=== PATIENT | female | born 1990 | race Hispanic/Latino ===

== ENCOUNTER 2020-10-07 12:16 | Observation (INO) | payer MEDICAID, SELFPAY ==
[2020-10-07 12:53] VITALS: BMI 32.8
[2020-10-07] MEDS ORDERED: hydrALAZINE 20 MG/ML VIAL SLOW IVP PRN (13:29)
[2020-10-07 14:10] LABS: #Eosinphils 0.1 10x3/uL (0.0-0.5); #Monocytes 0.7 10x3/uL (0.0-1.1); #Neutrophils 6.8 10x3/uL (1.5-8.4); %Basophils 0.3 % (0.0-2.0); %Eosinophils 0.8 % (0.0-6.0); %Lymphocytes 15.3 % (18.0-47.0); %Monocytes 7.5 % (0.0-10.0); %Neutrophils 75.1 % (40.0-75.0); Hemoglobin 13.5 g/dL (12.0-15.5); Mean Corpuscular HGB CONC 34.7 g/dL (32.0-36.0); Mean Corpuscular Hemoglobin 30.1 pg (27.0-33.0); Mean Corpuscular Volume 86.8 fl (81.6-98.3); Mean Platelet Volume 11.1 fl (7.4-10.4); Platelet Count 203 10x3/uL (150-450); RBC Distribution Width 12.9 % (11.5-14.5); Red Blood Cell (RBC) Count 4.48 10x6/uL (3.90-5.03); White Blood Cell (WBC) Count 9.1 10x3/uL (3.5-10.5)
[2020-10-07 14:22] LABS: ALT (SGPT) 14 U/L (8-55); AST (SGOT) 13 U/L (5-34); Albumin 3.4 g/dL (3.5-5.0); Alkaline Phosphatase 128 U/L (40-110); Anion Gap 14 mmol/L (10-20); BUN (Urea Nitrogen) 8 mg/dL (7.0-18.7); Bilirubin, Total 0.2 mg/dL (0.2-1.2); Calc. Creatinine Clearance 179 mL/min (70-130); Calcium 8.5 mg/dL (7.8-10.44); Carbon Dioxide 20 mmol/L (22-29); Chloride 106 mmol/L (98-107); Globulin 2.8 g/dL (2.4-3.5); Glucose 100 mg/dL (70-105); Potassium 3.5 mmol/L (3.5-5.1); Protein, Total 6.2 g/dL (6.0-8.3); Sodium 136 mmol/L (136-145); Uric Acid 5.3 mg/dL (2.6-6.0)
[2020-10-07 15:25] LABS: Creatinine, Urine 73.8 mg/dL (47-110)
[2020-10-07] MEDS ORDERED: Ondansetron PF 4 MG/2 ML Vial IVP PRN (15:44)
[2020-10-07] MEDS ORDERED: Docusate 100 MG CAP PO PRN (15:44)
[2020-10-07] MEDS ORDERED: Acetaminophen 500 MG TAB PO PRN (15:44)
[2020-10-07] MEDS ORDERED: Promethazine HCl 25 MG/ML VIAL IM PRN (15:44)
[2020-10-07 16:36] LABS: HIV (1/2) Antibody/Antigen Non-Reactive (NonReactive); HIV 1/2 INDEX 0.08 S/CO (<1.00); Syphilis Antibody Nonreactive (Nonreactive); Syphilis Antibody Index 0.04 S/CO (<1.00 Non-Reactive)
[2020-10-07] MEDS ORDERED: Aspirin 81 mg Enteric Coated Tablet PO SCH (16:45)
[2020-10-07] MEDS ORDERED: Labetalol 100 MG TAB PO SCH (23:15)
[2020-10-07 23:40] VITALS: BP 130/72
[2020-10-08 01:29] LABS: SARS-CoV-2 PCR NAA for Saliva Not Detected (NotDetected)
[2020-10-08] MEDS ORDERED: Aspirin 81 mg Enteric Coated Tablet PO SCH (09:00)
[2020-10-08] MEDS ORDERED: Prenatal Vitamin 1 TAB PO SCH (09:00)
[2020-10-08] MEDS ORDERED: Labetalol 100 MG TAB PO SCH ×2 (09:30→21:00)
[2020-10-08 21:21] LABS: Urine Total Volume 2800 mL (600-1600)
[2020-10-08 21:47] LABS: Protein, Urine Less than 10 mg/dL (1-14)
== END 2020-10-08 20:57 | disposition home or self-care (01) ==
LOC: CSHLD/OP 12:16 → CSHLD 19:10
PROVIDERS: ADMIT Family Medicine; ATTEND Family Medicine
DX: O10.913 Unspecified pre-existing hypertension complicating pregnancy, third trimester (principal); Z3A.34 34 weeks gestation of pregnancy; Z79.82 Long term (current) use of aspirin; Z20.822 Contact with and (suspected) exposure to COVID-19
CPT/HCPCS: 36415; 59025; 80053; 82570; 83615; 84156; 84550; 85025; 86780; 86850; 86900; 86901; 87389; 87635; 96374; 99285; G0378; J0360; U0003; U0005

== ENCOUNTER 2020-10-09 19:37 | Day surgery (SDC) | payer MEDICAID, SELFPAY ==
[2020-10-09] MEDS ORDERED: hydrALAZINE 20 MG/ML VIAL SLOW IVP PRN (19:46)
[2020-10-09 20:46] LABS: #Eosinphils 0.1 10x3/uL (0.0-0.5); #Monocytes 0.8 10x3/uL (0.0-1.1); #Neutrophils 5.8 10x3/uL (1.5-8.4); %Basophils 0.3 % (0.0-2.0); %Eosinophils 1.4 % (0.0-6.0); %Lymphocytes 20.7 % (18.0-47.0); %Monocytes 9.4 % (0.0-10.0); %Neutrophils 67.1 % (40.0-75.0); Hemoglobin 12.7 g/dL (12.0-15.5); Mean Corpuscular HGB CONC 34.8 g/dL (32.0-36.0); Mean Corpuscular Hemoglobin 30.6 pg (27.0-33.0); Platelet Count 192 10x3/uL (150-450); RBC Distribution Width 12.8 % (11.5-14.5); Red Blood Cell (RBC) Count 4.15 10x6/uL (3.90-5.03); White Blood Cell (WBC) Count 8.7 10x3/uL (3.5-10.5)
[2020-10-09 21:01] LABS: ALT (SGPT) 26 U/L (8-55); AST (SGOT) 21 U/L (5-34); Albumin 3.2 g/dL (3.5-5.0); Alkaline Phosphatase 125 U/L (40-110); Anion Gap 12 mmol/L (10-20); BUN (Urea Nitrogen) 5 mg/dL (7.0-18.7); Bilirubin, Total 0.2 mg/dL (0.2-1.2); Calc. Creatinine Clearance 0 mL/min (70-130); Carbon Dioxide 21 mmol/L (22-29); Chloride 108 mmol/L (98-107); Globulin 3.2 g/dL (2.4-3.5); Glucose 121 mg/dL (70-105); Potassium 3.7 mmol/L (3.5-5.1); Protein, Total 6.4 g/dL (6.0-8.3); Sodium 137 mmol/L (136-145)
[2020-10-09 21:15] LABS: Creatinine, Urine 38.23 mg/dL (47-110); Protein, Urine Random Quant Less than 10 mg/dL (1-14)
[2020-10-09] MEDS ORDERED: Labetalol 100 MG TAB PO SCH (21:45)
[2020-10-09 21:54] VITALS: BP 149/96
== END 2020-10-09 23:51 | disposition home or self-care (01) ==
LOC: CSHLD/OP 19:37
PROVIDERS: ATTEND Obstetrics & Gynecology
DX: O10.913 Unspecified pre-existing hypertension complicating pregnancy, third trimester (principal); Z3A.34 34 weeks gestation of pregnancy; Z79.82 Long term (current) use of aspirin
CPT/HCPCS: 80053; 82570; 84156; 85025; 99283

== ENCOUNTER 2020-10-21 10:23 | Outpatient (CLI) | payer OTHER ==
[2020-10-21 18:01] LABS: SARS-CoV-2 PCR by NAA Not Detected (NotDetected)
== END 2020-10-21 10:24 | disposition home or self-care (01) ==
LOC: CSHLAB 10:23
PROVIDERS: ATTEND Student in an Organized Health Care Education/Training Program
DX: Z20.822 Contact with and (suspected) exposure to COVID-19 (principal)
CPT/HCPCS: 87635; U0003; U0005

== ENCOUNTER 2020-10-25 18:00 | Inpatient (IN) | payer MEDICAID, OTHER, SELFPAY ==
[2020-10-25] MEDS: Lactated Ringer's 1,000 ML IV SCH (23:40)
[2020-10-25 23:44] VITALS: BMI 32.8
[2020-10-25] MEDS ORDERED: Ondansetron PF 4 MG/2 ML Vial IVP PRN (23:49)
[2020-10-25] MEDS ORDERED: Lidocaine 1% (PF) 30 ML VIAL SC PRN (23:49)
[2020-10-25] MEDS ORDERED: Diphenoxylate HCl/Atropine Tablet PO PRN (23:49)
[2020-10-25] MEDS ORDERED: Ibuprofen 800 MG TAB PO PRN (23:49)
[2020-10-25] MEDS ORDERED: NS / Oxytocin 40 units/1000ml 1,000 ML IV PRN (23:49)
[2020-10-25] MEDS ORDERED: Misoprostol 200 MCG TAB PR PRN (23:49)
[2020-10-25] MEDS ORDERED: hydrALAZINE 20 MG/ML VIAL SLOW IVP PRN (23:49)
[2020-10-25] MEDS ORDERED: Promethazine HCl 25 MG/ML VIAL IM PRN (23:49)
[2020-10-25] MEDS ORDERED: Carboprost 250 MCG/ML AMP IM PRN (23:49)
[2020-10-25] MEDS ORDERED: hydrALAZINE 20 MG/ML VIAL ONE (23:51)
[2020-10-26] MEDS ORDERED: Labetalol 100 MG TAB PO SCH (00:30)
[2020-10-26 00:46] LABS: Hemoglobin 12.5 g/dL (12.0-15.5); Mean Corpuscular HGB CONC 34.2 g/dL (32.0-36.0); Mean Corpuscular Volume 87.5 fl (81.6-98.3); Mean Platelet Volume 12.7 fl (7.4-10.4); Platelet Count 182 10x3/uL (150-450); Red Blood Cell (RBC) Count 4.17 10x6/uL (3.90-5.03); White Blood Cell (WBC) Count 9.1 10x3/uL (3.5-10.5)
[2020-10-26] MEDS: Misoprostol 100 MCG TAB VAG SCH ×4 (01:02→10:45)
[2020-10-26 01:13] LABS: Syphilis Antibody Nonreactive (Nonreactive); Syphilis Antibody Index 0.03 S/CO (<1.00 Non-Reactive)
[2020-10-26 01:14] LABS: Hep B Surf Ag Non-Reactive S/CO (NonReactive)
[2020-10-26 01:24] LABS: HBSAg Index 0.16 S/CO (0-0.99)
[2020-10-26 02:36] LABS: ALT (SGPT) 24 U/L (8-55); AST (SGOT) 16 U/L (5-34); Albumin 3.1 g/dL (3.5-5.0); Alkaline Phosphatase 142 U/L (40-110); Anion Gap 16 mmol/L (10-20); BUN (Urea Nitrogen) 6 mg/dL (7.0-18.7); Bilirubin, Total 0.2 mg/dL (0.2-1.2); Calc. Creatinine Clearance 179 mL/min (70-130); Calcium 8.7 mg/dL (7.8-10.44); Carbon Dioxide 17 mmol/L (22-29); Chloride 110 mmol/L (98-107); Globulin 2.6 g/dL (2.4-3.5); Glucose 97 mg/dL (70-105); Potassium 3.6 mmol/L (3.5-5.1); Protein, Total 5.7 g/dL (6.0-8.3); Sodium 139 mmol/L (136-145)
[2020-10-26] MEDS ORDERED: Calcium Gluc 4.6 MEQ/10 ML (100 MG/ML) SLOW IVP PRN (03:21)
[2020-10-26] MEDS ORDERED: Magnesium Sulfate 20 GM/WATER 500 ML BAG IVPB SCH (03:30)
[2020-10-26 04:34] LABS: Creatinine, Urine 37.09 mg/dL (47-110); Protein, Urine Random Quant Less than 10 mg/dL (1-14)
[2020-10-26] MEDS: Acetaminophen 500 MG TAB PO PRN ×2 (09:18→17:10)
[2020-10-26] MEDS: Labetalol 100 MG TAB PO SCH ×2 (09:19→21:42)
[2020-10-26] MEDS: Magnesium Sulfate 20 gm/500 ml 20 GM/500 ML BAG IVPB SCH (12:24)
[2020-10-26] MEDS: hydrALAZINE 20 MG/ML VIAL SLOW IVP PRN ×3 (13:36→22:23)
[2020-10-26] MEDS ORDERED: NS w/ Oxytocin 30 units 500 ML ONE (14:46)
[2020-10-26] MEDS ORDERED: NS w/ Oxytocin 30 units 500 ML IV SCH (15:15)
[2020-10-26] MEDS ORDERED: Sodium Chloride 0.65% Nasal 44 ML BOT EA NARE PRN (19:58)
[2020-10-26] MEDS: Lactated Ringer's 1,000 ML IV SCH (21:16)
[2020-10-26] MEDS ORDERED: Fentanyl 4 mcg/Bup 0.1% Cadd 100 ML ONE (22:59)
[2020-10-26] MEDS ORDERED: ePHEDrine 50 MG/ML VIAL SLOW IVP PRN (23:37)
[2020-10-26] MEDS ORDERED: Ondansetron PF 4 MG/2 ML Vial IVP PRN (23:37)
[2020-10-26] MEDS ORDERED: Acetaminophen 325 MG TAB PO PRN (23:37)
[2020-10-26] MEDS ORDERED: Naloxone HCl 0.4 mg/ml Vial IVP PRN ×2 (23:37)
[2020-10-26] MEDS ORDERED: diphenhydrAMINE 50 MG/ML VIAL IVP PRN (23:37)
[2020-10-26] MEDS ORDERED: Eucerin (Mineral Oil/Petrolatum,White) 30 gm Jar TOP PRN (23:37)
[2020-10-26] MEDS ORDERED: Promethazine HCl 25 MG/ML VIAL IM PRN (23:37)
[2020-10-26] MEDS ORDERED: Lactated Ringer's 500 ML IV PRN (23:37)
[2020-10-26] MEDS ORDERED: Fentanyl 4 mcg/Bupivacaine 0.1% Cassette 100 ML EPIDURAL SCH (23:45)
[2020-10-26] MEDS ORDERED: Hydrocerin (Eucerin) Cream 120 gm Jar TOP PRN (23:45)
[2020-10-26] MEDS ORDERED: Communication Order-Pharmacy FS SCH (23:45)
[2020-10-27] MEDS: Magnesium Sulfate 20 gm/500 ml 20 GM/500 ML BAG IVPB SCH ×3 (01:34→22:16)
[2020-10-27] MEDS ORDERED: Fentanyl 4 mcg/Bup 0.1% Cadd 100 ML ONE ×3 (07:52→21:03)
[2020-10-27] MEDS: Lactated Ringer's 1,000 ML IV SCH ×3 (08:07→23:10)
[2020-10-27] MEDS: Misoprostol 100 MCG TAB VAG SCH ×3 (08:07→12:12)
[2020-10-27] MEDS: Labetalol 100 MG TAB PO SCH (09:19)
[2020-10-27] MEDS: Labetalol HCl 100 MG/20 ML VIAL SLOW IVP PRN ×2 (09:21→12:55)
[2020-10-27] MEDS: hydrALAZINE 20 MG/ML VIAL SLOW IVP PRN ×2 (15:19→20:28)
[2020-10-27] MEDS: Dextrose 5%-Lactated Ringers 1,000 ML IV SCH (19:08)
[2020-10-27] MEDS ORDERED: Labetalol HCl 100 MG/20 ML VIAL SLOW IVP PRN ×2 (21:22)
[2020-10-27] MEDS ORDERED: Misoprostol 200 MCG TAB ONE (23:32)
[2020-10-27] MEDS ORDERED: Carboprost 250 MCG/ML AMP ONE (23:32)
[2020-10-28 00:58] LABS: Notified Whom: L & D RN
[2020-10-28 01:00] LABS: Notified Whom: L & D RN; RapidComm Collect By L & D RN; pH (Cord, venous) 7.337 (7.250-7.350)
[2020-10-28] MEDS ORDERED: Misoprostol 200 MCG TAB PR SCH (01:45)
[2020-10-28] MEDS ORDERED: Bisacodyl 10 MG SUPP PR PRN (02:03)
[2020-10-28] MEDS ORDERED: Preparation H Ointment 28 GM TUBE PR PRN (02:03)
[2020-10-28] MEDS ORDERED: Milk Of Magnesia 30 ML UDCUP PO PRN (02:03)
[2020-10-28] MEDS ORDERED: Benzocaine-Menthol 82.5 ML CAN TOP PRN (02:03)
[2020-10-28] MEDS ORDERED: diphenhydrAMINE 25 MG CAP PO PRN (02:03)
[2020-10-28] MEDS ORDERED: Adacel (T-DAP) 0.5 ML SYRINGE IM ONE (02:03)
[2020-10-28] MEDS: Acetaminophen 500 MG TAB PO PRN (03:07)
[2020-10-28] MEDS ORDERED: HYDROcodone/Acetaminophen 5/325 mg Tablet PO PRN (08:55)
[2020-10-28] MEDS: Magnesium Sulfate 20 gm/500 ml 20 GM/500 ML BAG IVPB SCH ×2 (09:19→21:31)
[2020-10-28] MEDS: Lactated Ringer's 1,000 ML IV SCH (09:19)
[2020-10-28] MEDS: HYDROcodone/Acetaminophen 5/325 mg Tablet PO PRN (10:27)
[2020-10-28 12:13] LABS: Hemoglobin 10.8 g/dL (12.0-15.5); Hemoglobin 10.9 g/dL (12.0-15.5); Mean Corpuscular HGB CONC 34.4 g/dL (32.0-36.0); Mean Corpuscular Hemoglobin 30.4 pg (27.0-33.0); Mean Corpuscular Volume 88.5 fl (81.6-98.3); Mean Platelet Volume 11.5 fl (7.4-10.4); Platelet Count 166 10x3/uL (150-450); Platelet Count 174 10x3/uL (150-450); RBC Distribution Width 13.8 % (11.5-14.5); Red Blood Cell (RBC) Count 3.58 10x6/uL (3.90-5.03); White Blood Cell (WBC) Count 16.4 10x3/uL (3.5-10.5)
[2020-10-28] MEDS ORDERED: Ibuprofen 800 MG TAB PO SCH (14:00)
[2020-10-28] MEDS: Labetalol 100 MG TAB PO SCH ×2 (14:40→21:32)
[2020-10-28] MEDS: Ferrous Sulfate 325 MG TAB PO SCH ×2 (14:48→17:47)
[2020-10-28] MEDS: Docusate Calcium (SURFAK) 240 MG CAP PO SCH ×2 (14:49→21:33)
[2020-10-28] MEDS: Prenatal Vitamin 1 TAB PO SCH (14:49)
[2020-10-29] MEDS: Labetalol 100 MG TAB PO SCH ×3 (08:25→21:11)
[2020-10-29] MEDS: HYDROcodone/Acetaminophen 5/325 mg Tablet PO PRN ×2 (08:25→21:12)
[2020-10-29] MEDS: Ferrous Sulfate 325 MG TAB PO SCH ×2 (08:25→17:06)
[2020-10-29] MEDS: Docusate Calcium (SURFAK) 240 MG CAP PO SCH ×2 (08:26→21:11)
[2020-10-29] MEDS: Prenatal Vitamin 1 TAB PO SCH (08:27)
[2020-10-29] MEDS: Polyethylene Glycol 3350 17 GM Packet PO SCH (09:45)
[2020-10-29] MEDS: Dextrose 5%-Lactated Ringers 1,000 ML IV SCH ×2 (22:01→22:02)
[2020-10-29] MEDS: Misoprostol 100 MCG TAB VAG SCH ×3 (22:38→22:40)
[2020-10-30] MEDS: HYDROcodone/Acetaminophen 5/325 mg Tablet PO PRN (03:13)
[2020-10-30] MEDS: hydrALAZINE 20 MG/ML VIAL SLOW IVP PRN (06:23)
[2020-10-30] MEDS: Ferrous Sulfate 325 MG TAB PO SCH ×2 (08:24→18:10)
[2020-10-30] MEDS ORDERED: Labetalol HCl 200 MG TAB PO SCH ×2 (09:30→21:00)
[2020-10-30] MEDS: Prenatal Vitamin 1 TAB PO SCH (09:57)
[2020-10-30] MEDS: Polyethylene Glycol 3350 17 GM Packet PO SCH (09:58)
[2020-10-30] MEDS: Docusate Calcium (SURFAK) 240 MG CAP PO SCH ×2 (10:30→21:14)
[2020-10-30] MEDS: Labetalol 100 MG TAB PO SCH ×2 (19:43→21:57)
[2020-10-31] MEDS: Ferrous Sulfate 325 MG TAB PO SCH (09:00)
[2020-10-31] MEDS: Polyethylene Glycol 3350 17 GM Packet PO SCH (09:08)
[2020-10-31] MEDS: Labetalol 100 MG TAB PO SCH (09:08)
[2020-10-31] MEDS: Docusate Calcium (SURFAK) 240 MG CAP PO SCH (09:08)
[2020-10-31] MEDS: Prenatal Vitamin 1 TAB PO SCH (09:08)
[2020-10-31 09:39] VITALS: TEMP 98.6
[2020-10-31 14:00] VITALS: BP 137/73
== END 2020-10-31 15:30 | disposition home or self-care (01) | DRG 805 ==
LOC: CSHLD 23:02 → CSHANTE 10-28 12:10
PROVIDERS: ADMIT Family Medicine; ATTEND Family Medicine
PROC: 10D07Z6 Extraction of Products of Conception, Vacuum, Via Natural or Artificial Opening (ICD-10-PCS; principal; 2020-10-28)
PROC: 0KQM0ZZ Repair Perineum Muscle, Open Approach (ICD-10-PCS; 2020-10-28)
PROC: 3E033VJ Introduction of Other Hormone into Peripheral Vein, Percutaneous Approach (ICD-10-PCS; 2020-10-28)
DX: O69.81X0 Labor and delivery complicated by cord around neck, without compression, not applicable or unspecified (principal); O41.1230 Chorioamnionitis, third trimester, not applicable or unspecified; Z37.0 Single live birth; O72.1 Other immediate postpartum hemorrhage; Z20.822 Contact with and (suspected) exposure to COVID-19; O11.4 Pre-existing hypertension with pre-eclampsia, complicating childbirth; Z20.1 Contact with and (suspected) exposure to tuberculosis; O76 Abnormality in fetal heart rate and rhythm complicating labor and delivery; O70.1 Second degree perineal laceration during delivery; Z3A.37 37 weeks gestation of pregnancy; Z79.82 Long term (current) use of aspirin
CPT/HCPCS: 36415; 51702; 71045; 80053; 82570; 82805; 83735; 84156; 84550; 85014; 85018; 85027; 85049; 86780; 86850; 86900; 86901; 87340; 88307; J0360; J2405; J2590; J3475